=== PATIENT | male | born 1965 | race Caucasian/White ===

== ENCOUNTER 2020-10-07 13:06 | Inpatient (IN) | payer OTHER ==
[2020-10-07] MEDS ORDERED: ACETAMINOPHEN 325 MG TABLET (FP) PO PRN (15:33)
[2020-10-07] MEDS ORDERED: IBUPROFEN 400 MG TABLET (FP) PO PRN (15:33)
[2020-10-07] MEDS ORDERED: MAGNESIUM HYDROX 2400MG/30ML ORAL SUSPENSION 30 ML CUP PO PRN (15:33)
[2020-10-07] MEDS ORDERED: P-EPHED 60MG/TRIPROLIDI 2.5MG TABLET PO PRN (15:33)
[2020-10-07] MEDS ORDERED: MAG HYDROX/AL HYDROX/SIMETH 30 ML UNIT-DOSE CUP PO PRN (15:33)
[2020-10-07] MEDS ORDERED: MAGNESIUM CITRATE 300 ML BOTTLE PO PRN (15:33)
[2020-10-07] MEDS ORDERED: guaiFENesin 200 MG/10 ML 10 ML UNIT-DOSE CUPS PO PRN (15:33)
[2020-10-07] MEDS ORDERED: LOPERAMIDE HCL 2 MG CAPSULE PO PRN (15:33)
[2020-10-07] MEDS ORDERED: NICOTINE POLACRILEX 2 MG GUM BC PRN (15:33)
[2020-10-07 15:34] VITALS: BMI 28.5
[2020-10-07 17:32] LABS: HEMATOCRIT 44.6 % (35.4-49); HEMOGLOBIN 15.2 GM/dL (11.7-16.9); MCH 32.5 pg (25.7-33.7); MCHC 34.1 g/dl (32.0-35.9); MEAN CELL VOLUME 95.4 fl (80-96); MEAN PLT VOLUME 8.9 fl (7.5-11.1); PLATELET COUNT 247 K/MM3 (134-434); POTASSIUM 4.2 mmol/L (3.5-5.1); RBC 4.68 M/mm3 (4.00-5.60); RDW 13.3 % (11.9-15.9); WHITE BLOOD COUNT 5.7 K/mm3 (4.0-10.0)
[2020-10-07 17:49] LABS: BILIRUBIN,TOTAL 0.3 mg/dL (0.2-1)
[2020-10-07 17:52] LABS: CALCIUM 8.8 mg/dL (8.5-10.1)
[2020-10-07 17:53] LABS: ALBUMIN 4.2 g/dl (3.4-5.0); BLOOD UREA NITROGEN 17.8 mg/dL (7-18)
[2020-10-07 17:55] LABS: TOT PROT 7.7 g/dl (6.4-8.2)
[2020-10-07] MEDS ORDERED: TUBERCULIN PPD 5 TU/0.1ML VIAL ID ONE ×2 (17:56→18:02)
[2020-10-07 17:57] LABS: CREATININE 1.3 mg/dL (0.55-1.3)
[2020-10-07] MEDS: hydrOXYzine PAMOATE 25 MG CAPSULE (FP) PO SCH ×2 (18:05→21:18)
[2020-10-07] MEDS: MELATONIN 5 MG TABLETS PO SCH (21:18)
[2020-10-07] MEDS: THIAMINE HCL 100 MG TABLET (FP) PO SCH (21:18)
[2020-10-08] MEDS: hydrOXYzine PAMOATE 25 MG CAPSULE (FP) PO SCH ×5 (06:11→21:08)
[2020-10-08] MEDS: PRENATAL VITAMINS W/ FOLIC ACID TABLET (FP) PO SCH (09:41)
[2020-10-08] MEDS ORDERED: ABACAVIR/DOLUTEGRAVIR/LAMIVUDI (TRIUMEQ) TABLET -NF PO ONE (11:00)
[2020-10-08] MEDS: FLUoxetine HCL 20 MG CAPSULE PO SCH (11:27)
[2020-10-08 19:46] LABS: PH,URINE 5.5 (5.0-8.0); URINE APPEARANCE CLEAR; URINE BILIRUBIN NEGATIVE (NEGATIVE); URINE COLOR YELLOW; URINE GLUCOSE (UA) NEGATIVE (NEGATIVE); URINE KETONE NEGATIVE (NEGATIVE); URINE LEUK ESTERASE NEGATIVE (NEGATIVE); URINE NITRITE NEGATIVE (NEGATIVE); URINE PROTEIN NEGATIVE (NEGATIVE); URINE UROBILINOGEN 0.2 mg/dL (0.2-1.0)
[2020-10-08] MEDS: MELATONIN 5 MG TABLETS PO SCH (21:07)
[2020-10-08] MEDS: THIAMINE HCL 100 MG TABLET (FP) PO SCH (21:07)
[2020-10-08] MEDS: ATORVASTATIN CA 10 MG TABLET (FP) PO SCH (21:08)
[2020-10-09] MEDS: ABACAVIR/DOLUTEGRAVIR/LAMIVUDI (TRIUMEQ) TABLET -NF PO SCH (07:13)
[2020-10-09] MEDS: hydrOXYzine PAMOATE 25 MG CAPSULE (FP) PO SCH ×5 (07:13→21:12)
[2020-10-09] MEDS: PRENATAL VITAMINS W/ FOLIC ACID TABLET (FP) PO SCH (09:46)
[2020-10-09] MEDS: FLUoxetine HCL 20 MG CAPSULE PO SCH (09:46)
[2020-10-09] MEDS: ATORVASTATIN CA 10 MG TABLET (FP) PO SCH (21:12)
[2020-10-09] MEDS: THIAMINE HCL 100 MG TABLET (FP) PO SCH (21:12)
[2020-10-09] MEDS: MELATONIN 5 MG TABLETS PO SCH (21:12)
[2020-10-10] MEDS: hydrOXYzine PAMOATE 25 MG CAPSULE (FP) PO SCH ×5 (06:02→21:03)
[2020-10-10] MEDS: ABACAVIR/DOLUTEGRAVIR/LAMIVUDI (TRIUMEQ) TABLET -NF PO SCH (07:11)
[2020-10-10] MEDS: FLUoxetine HCL 20 MG CAPSULE PO SCH (09:38)
[2020-10-10] MEDS: PRENATAL VITAMINS W/ FOLIC ACID TABLET (FP) PO SCH (09:38)
[2020-10-10] MEDS: THIAMINE HCL 100 MG TABLET (FP) PO SCH (21:02)
[2020-10-10] MEDS: MELATONIN 5 MG TABLETS PO SCH (21:02)
[2020-10-10] MEDS: ATORVASTATIN CA 10 MG TABLET (FP) PO SCH (21:02)
[2020-10-11] MEDS: hydrOXYzine PAMOATE 25 MG CAPSULE (FP) PO SCH ×5 (05:22→21:14)
[2020-10-11] MEDS: ABACAVIR/DOLUTEGRAVIR/LAMIVUDI (TRIUMEQ) TABLET -NF PO SCH (07:11)
[2020-10-11] MEDS: FLUoxetine HCL 20 MG CAPSULE PO SCH (09:47)
[2020-10-11] MEDS: PRENATAL VITAMINS W/ FOLIC ACID TABLET (FP) PO SCH (09:47)
[2020-10-11] MEDS: MELATONIN 5 MG TABLETS PO SCH (21:13)
[2020-10-11] MEDS: THIAMINE HCL 100 MG TABLET (FP) PO SCH (21:13)
[2020-10-11] MEDS: ATORVASTATIN CA 10 MG TABLET (FP) PO SCH (21:13)
[2020-10-12] MEDS: hydrOXYzine PAMOATE 25 MG CAPSULE (FP) PO SCH ×5 (06:01→21:10)
[2020-10-12] MEDS: ABACAVIR/DOLUTEGRAVIR/LAMIVUDI (TRIUMEQ) TABLET -NF PO SCH (07:16)
[2020-10-12] MEDS: FLUoxetine HCL 20 MG CAPSULE PO SCH (09:50)
[2020-10-12] MEDS: PRENATAL VITAMINS W/ FOLIC ACID TABLET (FP) PO SCH (09:50)
[2020-10-12] MEDS: THIAMINE HCL 100 MG TABLET (FP) PO SCH (21:10)
[2020-10-12] MEDS: ATORVASTATIN CA 10 MG TABLET (FP) PO SCH (21:10)
[2020-10-12] MEDS: MELATONIN 5 MG TABLETS PO SCH (21:10)
[2020-10-13] MEDS: hydrOXYzine PAMOATE 25 MG CAPSULE (FP) PO SCH ×2 (07:03→09:21)
[2020-10-13] MEDS: ABACAVIR/DOLUTEGRAVIR/LAMIVUDI (TRIUMEQ) TABLET -NF PO SCH (07:03)
[2020-10-13] MEDS: FLUoxetine HCL 20 MG CAPSULE PO SCH (09:21)
[2020-10-13] MEDS: PRENATAL VITAMINS W/ FOLIC ACID TABLET (FP) PO SCH (09:21)
[2020-10-13] MEDS ORDERED: hydrOXYzine PAMOATE 25 MG CAPSULE (FP) PO PRN (12:04)
[2020-10-13] MEDS: ATORVASTATIN CA 10 MG TABLET (FP) PO SCH (21:06)
[2020-10-13] MEDS: MELATONIN 5 MG TABLETS PO SCH (21:06)
[2020-10-13] MEDS: THIAMINE HCL 100 MG TABLET (FP) PO SCH (21:06)
[2020-10-14] MEDS: ABACAVIR/DOLUTEGRAVIR/LAMIVUDI (TRIUMEQ) TABLET -NF PO SCH (07:11)
[2020-10-14] MEDS: FLUoxetine HCL 20 MG CAPSULE PO SCH (09:20)
[2020-10-14] MEDS: PRENATAL VITAMINS W/ FOLIC ACID TABLET (FP) PO SCH (09:20)
[2020-10-14] MEDS: MELATONIN 5 MG TABLETS PO SCH (21:01)
[2020-10-14] MEDS: ATORVASTATIN CA 10 MG TABLET (FP) PO SCH (21:01)
[2020-10-14] MEDS: THIAMINE HCL 100 MG TABLET (FP) PO SCH (21:01)
[2020-10-15] MEDS: ABACAVIR/DOLUTEGRAVIR/LAMIVUDI (TRIUMEQ) TABLET -NF PO SCH (07:05)
[2020-10-15] MEDS: PRENATAL VITAMINS W/ FOLIC ACID TABLET (FP) PO SCH (09:39)
[2020-10-15] MEDS: FLUoxetine HCL 20 MG CAPSULE PO SCH (09:39)
[2020-10-15] MEDS: THIAMINE HCL 100 MG TABLET (FP) PO SCH (21:48)
[2020-10-15] MEDS: ATORVASTATIN CA 10 MG TABLET (FP) PO SCH (21:48)
[2020-10-15] MEDS: MELATONIN 5 MG TABLETS PO SCH (21:48)
[2020-10-16] MEDS ORDERED: PT OWN MED DRAWER 7, Y5N ONE (05:45)
[2020-10-16] MEDS: ABACAVIR/DOLUTEGRAVIR/LAMIVUDI (TRIUMEQ) TABLET -NF PO SCH (07:14)
[2020-10-16] MEDS: FLUoxetine HCL 20 MG CAPSULE PO SCH (09:41)
[2020-10-16] MEDS: PRENATAL VITAMINS W/ FOLIC ACID TABLET (FP) PO SCH (09:41)
[2020-10-16] MEDS: ATORVASTATIN CA 10 MG TABLET (FP) PO SCH (21:04)
[2020-10-16] MEDS: MELATONIN 5 MG TABLETS PO SCH (21:04)
[2020-10-16] MEDS: THIAMINE HCL 100 MG TABLET (FP) PO SCH (21:04)
[2020-10-17] MEDS ORDERED: PT OWN MED DRAWER 7, Y5N ONE (05:10)
[2020-10-17] MEDS: ABACAVIR/DOLUTEGRAVIR/LAMIVUDI (TRIUMEQ) TABLET -NF PO SCH (07:04)
[2020-10-17] MEDS: PRENATAL VITAMINS W/ FOLIC ACID TABLET (FP) PO SCH (09:19)
[2020-10-17] MEDS: FLUoxetine HCL 20 MG CAPSULE PO SCH (09:20)
[2020-10-17] MEDS: MELATONIN 5 MG TABLETS PO SCH (21:50)
[2020-10-17] MEDS: ATORVASTATIN CA 10 MG TABLET (FP) PO SCH (21:50)
[2020-10-17] MEDS: THIAMINE HCL 100 MG TABLET (FP) PO SCH (21:51)
[2020-10-18] MEDS: ABACAVIR/DOLUTEGRAVIR/LAMIVUDI (TRIUMEQ) TABLET -NF PO SCH (07:36)
[2020-10-18] MEDS: FLUoxetine HCL 20 MG CAPSULE PO SCH (10:24)
[2020-10-18] MEDS: PRENATAL VITAMINS W/ FOLIC ACID TABLET (FP) PO SCH (10:24)
[2020-10-18] MEDS: THIAMINE HCL 100 MG TABLET (FP) PO SCH (21:51)
[2020-10-18] MEDS: MELATONIN 5 MG TABLETS PO SCH (21:51)
[2020-10-18] MEDS: ATORVASTATIN CA 10 MG TABLET (FP) PO SCH (21:51)
[2020-10-19] MEDS: ABACAVIR/DOLUTEGRAVIR/LAMIVUDI (TRIUMEQ) TABLET -NF PO SCH (07:24)
[2020-10-19] MEDS: PRENATAL VITAMINS W/ FOLIC ACID TABLET (FP) PO SCH (10:21)
[2020-10-19] MEDS: FLUoxetine HCL 20 MG CAPSULE PO SCH (10:22)
[2020-10-19] MEDS: ATORVASTATIN CA 10 MG TABLET (FP) PO SCH (21:40)
[2020-10-19] MEDS: MELATONIN 5 MG TABLETS PO SCH (21:40)
[2020-10-19] MEDS: THIAMINE HCL 100 MG TABLET (FP) PO SCH (21:40)
[2020-10-20] MEDS ORDERED: PT OWN MED DRAWER 7, Y5N ONE (05:22)
[2020-10-20] MEDS: ABACAVIR/DOLUTEGRAVIR/LAMIVUDI (TRIUMEQ) TABLET -NF PO SCH (07:09)
[2020-10-20 08:10] VITALS: BP 125/75; PULSE 83; TEMP 97.7
[2020-10-20] MEDS: PRENATAL VITAMINS W/ FOLIC ACID TABLET (FP) PO SCH (10:33)
[2020-10-20] MEDS: FLUoxetine HCL 20 MG CAPSULE PO SCH (10:34)
== END 2020-10-20 11:35 | disposition home or self-care (01) | DRG 895 ==
LOC: YASAS 13:06 → Y5N 16:29
PROVIDERS: ADMIT Allergy & Immunology; ATTEND Allergy & Immunology
PROC: HZ42ZZZ Group Counseling for Substance Abuse Treatment, Cognitive-Behavioral (ICD-10-PCS; principal; 2020-10-07)
DX: F10.20 Alcohol dependence, uncomplicated (principal); F15.10 Other stimulant abuse, uncomplicated; F10.280 Alcohol dependence with alcohol-induced anxiety disorder; F32.9 Major depressive disorder, single episode, unspecified; F41.9 Anxiety disorder, unspecified; F42.9 Obsessive-compulsive disorder, unspecified; Z21 Asymptomatic human immunodeficiency virus [HIV] infection status; E78.5 Hyperlipidemia, unspecified; M54.31 Sciatica, right side; Z87.81 Personal history of (healed) traumatic fracture
CPT/HCPCS: 36415; 80053; 81003; 85027; 86593; 86780; C9803; U0003